=== PATIENT | male | born 1990 | race Two or more races ===

== ENCOUNTER 2017-05-21 00:31 | Emergency (ER) | payer OTHER ==
[~2017-05-21] VITALS: Ht 182.9 cm; Wt 77.5 kg
[2017-05-21 01:51] VITALS: BP 130/98
[2017-05-21 02:18] LABS: CULTURE INDICATED? YES; MICROSCOPIC INDICATED
[2017-05-21] MEDS ORDERED: KETOROLAC 30 MG/1 ML IM ONE (02:30)
[2017-05-21] MEDS ORDERED: ONDANSETRON ODT 8 MG PO ONE (02:30)
[2017-05-21 02:48] LABS: BASOPHILS # (AUTO) 0.02 x10^3/uL (0-0.1); BASOPHILS % (AUTO) 1 % (0-1); EOSINOPHILS # (AUTO) 0.02 x10^3/uL (0-0.4); EOSINOPHILS % (AUTO) 1 % (1-7); LYMPHOCYTES # (AUTO) 0.53 x10^3/uL (1-3.4); LYMPHOCYTES % (AUTO) 14 % (22-44); MD NO; MEAN CORPUSCULAR HEMOGLOBIN 27.9 pg (27.5-34.5); MEAN CORPUSCULAR HGB CONC 32.6 g/dL (33.2-36.2); MEAN CORPUSCULAR VOLUME 85.6 fL (81-97); MEAN PLATELET VOLUME 8.8 fL (7.4-10.4); MONOCYTES # (AUTO) 0.41 x10^3/uL (0.2-0.8); MONOCYTES % (AUTO) 11 % (2-9); NEUTROPHILS # (AUTO) 2.87 x10^3/uL (1.8-6.8); NEUTROPHILS % (AUTO) 75 % (42-75); PLATELET COUNT 144 x10^3/uL (130-400); RED BLOOD COUNT 5.68 x10^6/uL (4.38-5.82); RED CELL DISTRIBUTION WIDTH 14.1 % (9.4-14.8)
[2017-05-21] MEDS ORDERED: KETOROLAC 30 MG/1 ML ONE (02:55)
[2017-05-21] MEDS ORDERED: ONDANSETRON ODT 8 MG ONE (02:55)
[2017-05-21 02:58] LABS: ALBUMIN 3.4 g/dL (3.4-5.0); ANION GAP 7 mmol/L (5-15); CALCIUM 8.3 mg/dL (8.5-10.1); CHLORIDE 106 mmol/L (98-107)
[2017-05-21 03:01] LABS: ALANINE AMINOTRANSFERASE 41 U/L (12-78); ALKALINE PHOSPHATASE 58 U/L (45-117); BILIRUBIN,TOTAL 1.4 mg/dL (0.2-1.0); CREATININE 0.87 mg/dL (0.7-1.3); TOTAL PROTEIN 6.9 g/dL (6.4-8.2)
== END 2017-05-21 04:26 | disposition home or self-care (01) ==
LOC: ED 03:17
DX: R11.2 Nausea with vomiting, unspecified (principal); R10.31 Right lower quadrant pain; R10.32 Left lower quadrant pain
CPT/HCPCS: 36415; 80053; 81001; 83690; 85025; 87086; 96372; 99284; J1885; Q0162

== ENCOUNTER 2018-04-18 00:35 | Emergency (ER) | payer SELFPAY ==
[~2018-04-18] VITALS: Ht 182.9 cm; Wt 73.2 kg
[2018-04-18 00:37] VITALS: BP 129/74
[2018-04-18] MEDS ORDERED: SODIUM CHLORIDE FLUSH 10ML SYR IVF ONE (01:00)
[2018-04-18] MEDS ORDERED: KETOROLAC 30 MG/1 ML IVPush ONE (01:00)
[2018-04-18] MEDS ORDERED: PROCHLORPERAZINE 5 MG/ML, 2ML IVPush ONE (01:00)
[2018-04-18] MEDS ORDERED: DIPHENHYDRAMINE 50 MG/ML, 1ML IVPush ONE (01:00)
[2018-04-18] MEDS ORDERED: KETOROLAC 30 MG/1 ML ONE (01:18)
[2018-04-18] MEDS ORDERED: DIPHENHYDRAMINE 50 MG/ML, 1ML ONE (01:18)
[2018-04-18] MEDS ORDERED: PROCHLORPERAZINE 5 MG/ML, 2ML ONE (01:18)
--- NOTE | 2018-04-18 01:46 | NUR ---
Pt c/o SOTELO for 3 days. Denies N/V. PT states hx of same when he was 16 and had r side paralysis at that time but then resolved. Denies further f/u with neuro. PT BACK FROM CT, STATES HAS MASSIVE HEADACHE ON FRONT OF HEAD. IV STARTED AND PT MEDICATED PER eMAR, CALL LIGHT IN REACH
== END 2018-04-18 02:07 | disposition home or self-care (01) ==
LOC: ED 01:03
DX: G43.019 Migraine without aura, intractable, without status migrainosus (principal)
CPT/HCPCS: 70450; 96374; 96375; 99284; J0780; J1200; J1885

== ENCOUNTER 2019-07-27 22:28 | Emergency (ER) | payer SELFPAY ==
[~2019-07-27] VITALS: Ht 185.4 cm; Wt 74.6 kg
[2019-07-27] MEDS ORDERED: ONDANSETRON ODT 4 MG ONE (22:59)
[2019-07-27] MEDS ORDERED: AZITHROMYCIN 500 MG TABLET ONE (22:59)
[2019-07-27] MEDS ORDERED: CEFTRIAXONE 250 MG ONE ×2 (22:59→23:07)
[2019-07-27] MEDS ORDERED: ONDANSETRON ODT 4 MG PO ONE (23:00)
[2019-07-27] MEDS ORDERED: AZITHROMYCIN 500 MG TABLET PO ONE (23:00)
[2019-07-27] MEDS ORDERED: CEFTRIAXONE 250 MG IM ONE (23:00)
--- NOTE | 2019-07-27 23:22 | NUR ---
MEDICATIONS GIVEN PER MAR, PATIENT TOLERATED WELL. NO NOTED ACUTE DISTRESS. VERBALZIED UNDERSTANDING OF WAIT PERIOD PRIOR TO DISCHARGE DUE TO ANTIBIOTIC THERAPY.
[2019-07-27 23:47] VITALS: BP 117/62
== END 2019-07-27 23:51 | disposition home or self-care (01) ==
LOC: ED 23:30
DX: A54.9 Gonococcal infection, unspecified (principal)
CPT/HCPCS: 87491; 87591; 96372; 99283; J0696; Q0162